=== PATIENT | female | born 1985 | race Caucasian/White ===

== ENCOUNTER 2019-08-14 15:37 | Emergency (ER) | payer OTHER ==
[~2019-08-14] VITALS: Ht 154.9 cm; Wt 81.7 kg
[2019-08-14 16:15] LABS: URINE BLOOD TRACE (Negative); URINE CLARITY CLEAR; URINE COLOR YELLOW; URINE GLUCOSE-RANDOM NEGATIVE (Negative); URINE LEUKOCYTES-REFLEX NEGATIVE (Negative); URINE NITRITE-REFLEX NEGATIVE (Negative); URINE PROTEIN TRACE (Negative); URINE SPECIFIC GRAVITY >= 1.030 (1.005-1.030); URINE UROBILINOGEN 0.2 E.U./dl (0.2-1.0)
[2019-08-14 16:17] LABS: URINE BILIRUBIN 1+ (Negative); URINE KETONES 3+ (Negative)
[2019-08-14 16:18] LABS: ICTOTEST (BILI CONFIRMATORY) Negative (Negative)
[2019-08-14 16:20] LABS: HEMATOCRIT 45.9 % (37.0-47.0); HEMOGLOBIN 15.9 gm/dL (12.0-15.0); MCH 29.2 pg (26.0-34.0); MCHC 34.6 g/dL (28.0-37.0); MCV 84.4 fL (80.0-100.0); NUCLEATED RBCS 0 /100WBC; PLATELET COUNT* 229 thou/uL (150-400); RBC 5.43 mil/uL (4.20-5.00); RDW-CV 13.6 % (10.5-14.5); WBC 8.5 thou/uL (4.0-11.0)
[2019-08-14 16:27] LABS: INFLUENZA A ANTIGEN Positive (Negative); INFLUENZA B ANTIGEN Negative (Negative)
[2019-08-14 16:31] LABS: CALCIUM 9.3 mg/dL (8.5-10.1); CREATININE 0.9 mg/dL (0.6-1.3); POTASSIUM 3.6 mmol/L (3.5-5.1)
[2019-08-14 16:36] LABS: ALBUMIN 4.2 g/dL (3.4-5.0); TOTAL BILIRUBIN 0.3 mg/dL (<0.1-1.0); TOTAL PROTEIN 8.1 g/dL (6.4-8.2)
[2019-08-14 17:00] LABS: ABSOLUTE EOSINOPHILS 0.3 thou/uL (0.0-0.7); ABSOLUTE LYMPHOCYTES 0.8 thou/uL (0.8-5.3); ABSOLUTE MONOCYTES 0.6 thou/uL (0.0-1.2); ABSOLUTE NEUTROPHILS 6.8 thou/uL (1.6-8.1); PLATELET ESTIMATE ADEQUATE
[2019-08-14] MEDS ORDERED: PROAIR HFA8.5 GM INH (17:04)
[2019-08-14] MEDS ORDERED: TYLENOL WITH CO1 TA1 PO (17:04)
[2019-08-14] MEDS ORDERED: TESSALON PERLE100 MG PO (17:04)
[2019-08-14] MEDS ORDERED: PROMETHAZINE V120 ML PO (17:04)
[2019-08-14 17:25] VITALS: BP 123/80
== END 2019-08-14 17:25 | disposition home or self-care (01) ==
LOC: M.ERS 15:37
PROVIDERS: Physician Assistant
DX: J10.1 Influenza due to other identified influenza virus with other respiratory manifestations (principal); E86.0 Dehydration; Z90.710 Acquired absence of both cervix and uterus

== ENCOUNTER 2021-04-09 20:37 | Emergency (ER) | payer OTHER ==
[~2021-04-09] VITALS: Ht 154.9 cm; Wt 88.5 kg
[~2021-04-09 20:37] MED LIST: PROAIR HFA8.5 GM INH; PROMETHAZINE V120 ML PO; TESSALON PERLE100 MG PO; TYLENOL WITH CO1 TA1 PO
[2021-04-09 21:04] LABS: URINE BILIRUBIN NEGATIVE (Negative); URINE BLOOD 3+ (Negative); URINE CLARITY CLEAR; URINE COLOR YELLOW; URINE GLUCOSE-RANDOM NEGATIVE (Negative); URINE KETONES NEGATIVE (Negative); URINE NITRITE-REFLEX NEGATIVE (Negative); URINE PROTEIN NEGATIVE (Negative); URINE UROBILINOGEN 0.2 E.U./dl (0.2-1.0)
[2021-04-09 21:05] LABS: URINE LEUKOCYTES-REFLEX 2+ (Negative)
[2021-04-09 21:28] LABS: SQUAMOUS 4-10 Moderate /LPF (0-3)
[2021-04-09 21:29] LABS: BACTERIA-REFLEX 1-9 Few /HPF (None Seen); CASTS None Seen /LPF (None Seen); CRYSTALS None Seen /LPF (None Seen); URINE RBC 3-10 Few /HPF (0-2)
[2021-04-10] MEDS ORDERED: PYRIDIUM100 M1 PO (00:56)
[2021-04-10] MEDS ORDERED: CIPROFLOXACIN500 M1 PO (00:56)
[2021-04-10 01:14] VITALS: BP 124/76
== END 2021-04-10 01:14 | disposition home or self-care (01) ==
LOC: M.ERS 20:37
PROVIDERS: Nurse Practitioner Family
DX: N39.0 Urinary tract infection, site not specified (principal); Z90.710 Acquired absence of both cervix and uterus